=== PATIENT | female | born 1950 | race Caucasian/White ===

== ENCOUNTER → 2017-03-29 | Outpatient (CLI) | payer OTHER ==
[~2017-03-29] MED LIST: 24 HOUR ALLER15.8 ML; ACTALIN; ALLER-EASE180 MG PO; B COMPLEX1 EACH; LEVAQUIN750 MG PO; PRENATAL VITAM1 EAC4; TRAMADOL HCL50 M1 PO; VITAMIN E400 UNI4 PO
--- NOTE | ~2017-03-29 | ST ---
Unit #: [id number] #: [id number] Patient: AKILA LAZO [id number] [address] [address] [id number] O MR#: [id number] NAME: AKILA LAZO : 1950 SEX: F STUDY DATE/TIME: UNIT: CN ROOM: STUDY DESCRIPTION: Stress Test Attending Physician: Jeremy Cee M.D. Referring Physician: Jeremy Cee M.D. Primary Care Physician: Niecy Lange M.D. CARDIOLOGY REPORT ADDENDUM At the very bottom please amend to: 1. Normal heart rate response. 2. Very hypertensive blood pressure response, possibly contributing to the dizziness. Dictated by... Del Lynn M.D. PJR/df TD: 04/02/2017 12:26 JOB #: [id number] CARDIOLOGY REPORT Page 1 of 1 X Del Lynn MD CARDIOLOGY REPORT
--- NOTE | ~2017-03-29 | ST ---
Unit #: [id number] #: [id number] Patient: AKILA LAZO [id number] [address] [place], [place] [address] [id number] O MR#: [id number] NAME: AKILA LAZO : 1950 SEX: F STUDY DATE/TIME: 03/29/2017 UNIT: [facility] ROOM: STUDY DESCRIPTION: Attending Physician: Jeremy Cee M.D. Referring Physician: Jeremy Cee M.D. Primary Care Physician: Niecy Lange M.D. CARDIOLOGY REPORT EXAM Stress nuclear and ECG combined. INDICATIONS Irregular heart rate, dyslipidemia, tobacco abuse in the past, thyroid disease. SUMMARY The patient exercised on a Rosendo protocol to maximal effort. Legs became tired. Patient became dizzy immediately after exercise. Patient's blood pressure increased from 124/67 to 210/80, accompanied by the dizziness. Heart rate increased from 67 to 134. Heart rate was 86%. The resting ECG showed T-wave inversion in leads II, III, aVF, V4 through V6. With stress, there was pseudonormalization of the T waves in all these leads. There was no diagnostic ST depression but there was only J-point depression. Technetium 99m Cardiolite 11.5 and 32.4 mCi was injected at rest and stress respectively. Appropriate views were obtained. FINDINGS: Perfusion images demonstrate normal perfusion throughout the myocardium both at rest and stress. Planar images demonstrate no significant patient motion at rest or stress. There is no significant lung uptake, LV or RV enlargement. There was minimal breast attenuation artifact. Summed stress score is zero. Gated perfusion wall motion analysis demonstrates a small ventricle end-diastolic volume 50 mL, ejection fraction greater than 65% with no wall motion abnormalities. IMPRESSION 1. Myocardial perfusion scan demonstrates no ischemia or infarction. 2. Very small ventricle. 3. Normal wall motion with excellent ejection fraction. 4. Abnormal nondiagnostic stress ECG. 5. Normal heart rate and blood pressure responses. Dictated by... Del Lynn M.D. REID/zurdo Unit #: [id number] #: [id number] Patient: AKILA LAZO TD: 04/02/2017 10:27 JOB #: [id number] CARDIOLOGY REPORT Page 1 of 1 X Del Lynn MD CARDIOLOGY REPORT
== END | disposition home or self-care (01) ==
LOC: CNUC 07:29
DX: R07.9 Chest pain, unspecified (principal); I51.7 Cardiomegaly; R94.31 Abnormal electrocardiogram [ECG] [EKG]
CPT/HCPCS: 78452; 93017; 93306; A9500